=== PATIENT | female | born 1990 | race Two or more races ===

== ENCOUNTER 2024-09-16 19:12 | Emergency (ER) | payer MEDICAID, OTHER ==
[~2024-09-16] VITALS: Ht 167.6 cm; Wt 93.1 kg
[2024-09-16] MEDS: HYDROcodone-ACET 10/325MG TAB PO ONE (20:55)
[2024-09-16] MEDS: KETOROLAC TROMETH 60MG/2ML VIAL IM ONE (20:56)
[2024-09-16 21:52] VITALS: BP 132/75; PULSE 63; RESP 17; TEMP 98.2; O2SAT 99
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
[2024-09-16] MEDS ORDERED: IBUP-1455 PO (22:31)
[2024-09-16] MEDS ORDERED: ACET500T58 PO (22:31)
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
== END 2024-09-16 22:56 | disposition home or self-care (01) ==
LOC: EDBD 19:12 → ER 19:21 → EDBD 19:21 → ER 22:56
DX: S16.1XXA Strain of muscle, fascia and tendon at neck level, initial encounter (principal); R51.9 Headache, unspecified; V89.2XXA Person injured in unspecified motor-vehicle accident, traffic, initial encounter; Y93.89 Activity, other specified; Y92.89 Other specified places as the place of occurrence of the external cause; Y99.8 Other external cause status
CPT/HCPCS: 70450; 72125; 96372; 99285; J1885